=== PATIENT | male | born 1970 | race Caucasian/White ===

== ENCOUNTER 2017-07-10 12:09 | Emergency (ER) | payer SELFPAY | END 2017-07-10 12:10 | disposition left against medical advice (07) | LOC: UCCORT 12:09 | DX: K08.89 Other specified disorders of teeth and supporting structures (principal); Z53.21 Procedure and treatment not carried out due to patient leaving prior to being seen by health care provider ==

== ENCOUNTER 2017-11-13 10:01 | Emergency (ER) | payer SELFPAY ==
[2017-11-13 12:20] VITALS: BP 140/80
--- NOTE | 2017-11-13 12:57 | UC ---
Dental HPI - HPI Summary HPI Summary: c/o dental pain - 2 days ago had 3 teeth pulled left side lower mouth. eating ibuprofen like candy. also had 13 cavities filled over past 2 weeks also, wasnt given any pain medication at dental office. eating softer foods now d/t pain taking pcn post extraction as directed - History of Current Complaint Chief Complaint: UCDentalProblem Stated Complaint: MOUTH PAIN S/P TOOTH EXTRACTION Time Seen by Provider: 11/13/17 12:41 Hx Obtained From: Patient Onset/Duration: Lasting Weeks Severity: Severe Pain Intensity: 10 Aggravating Factor(s): Chewing Alleviating Factor(s): Nothing - Allergies/Home Medications Allergies/Adverse Reactions: Allergies Allergy/AdvReac Type Severity Reaction Status Date / Time No Known Allergies Allergy Verified 11/13/17 12:20 Home Medications: Home Medications Gabapentin CAP(*) [Neurontin 300 CAP(*)] 300 mg PO TID 11/13/17 [History Confirmed 11/13/17] PMH/Surg Hx/FS Hx/Imm Hx Previously Healthy: Yes GI/ History: Gastroesophageal Reflux Other Neurological History: neuropathy Psychological History: Anxiety, Depression - Surgical History Surgical History: Yes Surgery Procedure, Year, and Place: TEETH - Family History Known Family History: Positive: Unknown - Social History Alcohol Use: Daily Alcohol Amount: has not drank in 7 months Substance Use Type: None Smoking Status (MU): Heavy Every Day Tobacco Smoker Amount Used/How Often: ~ 1/2 ppd Review of Systems Constitutional: Negative Skin: Negative Eyes: Negative ENT: Dental Pain - left lower side of mouth Respiratory: Negative Cardiovascular: Negative Gastrointestinal: Negative Genitourinary: Negative Musculoskeletal: Negative Neurological: Negative Psychological: Negative Is Patient Immunocompromised?: No All Other Systems Reviewed And Are Negative: Yes Physical Exam Triage Information Reviewed: Yes Appearance: Pain Distress Vital Signs: Initial Vital Signs Temp 98.4 F 11/13/17 12:15 Pulse 87 11/13/17 12:15 Resp 18 11/13/17 12:15 BP 140/80 11/13/17 12:15 Pulse Ox 98 11/13/17 12:15 Vital Signs Reviewed: Yes Eye Exam: Normal ENT Exam: Normal Dental Exam: Other - left lower side of mouth with teeth extracted x 3 - suture x 1 present - redness/swelling present but no drainage Respiratory Exam: Normal Cardiovascular Exam: Normal Neurological Exam: Normal Psychological Exam: Normal Skin Exam: Normal Dental Complaint Course/Dx - Course Course Of Treatment: take codeine 1 po every 6 hours prn pain - if pain persists into next week then call dentist who did extractions and f/u - discussed use and common side effects of med. continue antibiotic from dentist until finished. eat softer foods for few days to reduce pain on left side of mouth. can use ibuprofen also prn every 6 -8 hours as directed on bottle for pain. f/u if symptoms not resolving - Differential Dx/Diagnosis Provider Diagnoses: dental pain - post extraction Discharge - Discharge Plan Condition: Good Disposition: HOME Prescriptions: Codeine TAB* [Codeine Tab*] 30 mg PO Q6H PRN 10 Days #40 tab MDD 4 PRN Reason: Pain (Dental) Patient Education Materials: Toothache (ED) Referrals: Zev Spencer MD [Primary Care Provider] - 1 Week Additional Instructions: back to dentist by wednesday or wednesday if symptoms continue
== END 2017-11-13 13:37 | disposition home or self-care (01) ==
LOC: UCCORT 10:01
DX: K08.89 Other specified disorders of teeth and supporting structures (principal); K08.109 Complete loss of teeth, unspecified cause, unspecified class; F17.210 Nicotine dependence, cigarettes, uncomplicated
CPT/HCPCS: 99212; G0463

== ENCOUNTER 2019-03-01 09:38 | Emergency (ER) | payer SELFPAY ==
[2019-03-01 10:03] VITALS: BP 115/91
--- NOTE | 2019-03-01 10:30 | ED ---
Upper Extremity Pain - HPI Summary HPI Summary: 48 yr old male with right hand middle finger distal phalynx pain. Onset about a month ago. No trauma, and no known foreign bodies. The patient reports that he had swelling and some mild discoloration dark at times and also some redness to the finger tip volar surface. he states he thought maybe he had something inthe finger tip so he attempted to open his finger tip and pull it out. He thinks he may still have something in the finger tip, but doesn't recall ever getting anything in the finger tip. the patient has no other complaints. - History of Current Complaint Chief Complaint: UCUpperExtremity Stated Complaint: RT HAND-THIRD FINGER CONCERN Time Seen by Provider: 03/01/19 10:01 - Allergies/Home Medications Allergies/Adverse Reactions: Allergies Allergy/AdvReac Type Severity Reaction Status Date / Time No Known Allergies Allergy Verified 03/01/19 10:03 Home Medications: Home Medications ALPRAZolam [Xanax] 2 mg PO TID 03/01/19 [History Confirmed 03/01/19] PMH/Surg Hx/FS Hx/Imm Hx Endocrine/Hematology History: Denies: Hx Diabetes, Hx Thyroid Disease Cardiovascular History: Denies: Hx Hypertension Respiratory History: Denies: Hx Asthma, Hx Chronic Obstructive Pulmonary Disease (COPD) GI History: Denies: Hx Ulcer Psychiatric History: Reports: Hx Anxiety - Surgical History Surgery Procedure, Year, and Place: TEETH Infectious Disease History: No Infectious Disease History: Denies: Hx Clostridium Difficile, Hx Hepatitis, Hx Human Immunodeficiency Virus (HIV), Hx of Known/Suspected MRSA, Hx Shingles, Hx Tuberculosis, Hx Known/ Suspected VRE, Hx Known/Suspected VRSA, History Other Infectious Disease, Traveled Outside the [place] in Last 30 Days - Family History Known Family History: Positive: Unknown - Social History Alcohol Use: None Alcohol Amount: has not drank in 7 months Substance Use Type: Reports: None Smoking Status (MU): Heavy Every Day Tobacco Smoker Type: Cigarettes Amount Used/How Often: ~ 1/2 ppd Length of Time of Smoking/Using Tobacco: since age 16 Have You Smoked in the Last Year: Yes Review of Systems Constitutional: Negative Positive: Other - right middle finger tip swelling All Other Systems Reviewed And Are Negative: Yes Physical Exam Triage Information Reviewed: Yes Vital Signs On Initial Exam: Initial Vitals Temp Pulse Resp BP Pulse Ox 96.9 F 77 14 115/91 100 03/01/19 09:54 03/01/19 09:54 03/01/19 09:54 03/01/19 09:54 03/01/19 09:54 Vital Signs Reviewed: Yes Appearance: Positive: Well-Appearing, No Pain Distress Skin: Positive: Warm, Skin Color Reflects Adequate Perfusion, Other - right middle finger tip with mild redness and some mild swelling over the distal phalynx fat pad. The has an abrasion type lesion where he dug at the distal tip. Eyes: Positive: EOMI Neck: Positive: Nontender Respiratory/Lung Sounds: Positive: Clear to Auscultation, Breath Sounds Present Cardiovascular: Positive: RRR, Pulses are Symmetrical in both Upper and Lower Extremities. Negative: Murmur Musculoskeletal: Positive: Strength/ROM Intact, Other - right hand with neuro vascular intact. The right middle finger with redness and swelling over the distal phalynx volar area. No swelling or limit to range of motion of the DIP or PIP joint areas. No tenosynovitis. No obvious FB seen or palpated. The right hand is free of swelling, pain and redness. Neurological: Positive: Sensory/Motor Intact, Alert, Oriented to Person Place, Time, CN Intact II-III, Speech Normal Psychiatric: Positive: Normal Diagnostics - Vital Signs Vital Signs Temp Pulse Resp BP Pulse Ox 03/01/19 09:54 96.9 F 77 14 115/91 100 - Laboratory Lab Statement: Any lab studies that have been ordered have been reviewed, and results considered in the medical decision making process. - Radiology right mid finger Radiology Interpretation Completed By: Radiologist - PIP STS joint swelling. Course/Dx - Course Course Of Treatment: 48 yr old with localized cellulitis to the right middle finger tip. Plan keflex, and i have given him orthopedics to follow up with a hand specialist in the group for possiblity of retain FB. Patient knows the concern over retain FB and he verbalized he is going to call ortho for follow up today. - Diagnoses Provider Diagnoses: Cellulitis of right middle finger Discharge - Sign-Out/Discharge Documenting (check all that apply): Patient Departure All imaging exams completed and their final reports reviewed: Yes - Discharge Plan Condition: Good Disposition: HOME Prescriptions: Cephalexin CAP* [Keflex CAP*] 500 mg PO QID #40 cap Patient Education Materials: Soft Tissue Foreign Body (ED), Cellulitis (ED), Hypertension (ED) Referrals: Zev Spencer MD [Primary Care Provider] - Tyson Lange MD [Medical Doctor] - 1 Day - Billing Disposition and Condition Condition: GOOD Disposition: Home
== END 2019-03-01 10:48 | disposition home or self-care (01) ==
LOC: UCCORT 09:38
DX: L03.011 Cellulitis of right finger (principal); F17.210 Nicotine dependence, cigarettes, uncomplicated
CPT/HCPCS: 73140; 99212; G0463